=== PATIENT | male | born 1950 | race Caucasian/White ===

== ENCOUNTER 2019-05-20 07:52 | Outpatient (CLI) | payer MEDICARE, BC ==
--- NOTE | 2019-05-20 10:52 | CT ---
ABDOMEN CT WITHOUT CONTRAST PELVIC CT WITHOUT CONTRAST: HISTORY: Hematuria. Lower abdominal and groin pain. Renal calculi. COMPARISON: None. FINDINGS: Abdomen CT: Lung bases:Dependent atelectatic changes. Heart size: Normal heart size. No significant pericardial fluid. There are coronary artery consultati ons. Aorta: Normal caliber. Solid organs: Limited evaluation by the lack of IV contrast. Grossly no solid organ abnormality. Mild atrophy of the head of the pancreas. Lymph nodes: No gastrohepatic, retrocrural or periportal lymphadenopathy. Gallbladder: Cholelithiasis. No evidence of cholecystitis. Mesentery: No mass, lymphadenopathy, free air or free fluid. Right kidney: No evidence of obstructive uropathy. Left kidney: Nonobstructing calculus in the lower pole of the left kidney, measuring 0.7 cm. Mild to moderate dilatation of the left intrarenal collecting system and proximal left ureter. Obstructing 0.8 cm calculus. The remainder of the left ureter is decompressed. Alimentary canal: Limited evaluation by the lack of oral contrast. No evidence of bowel obstruction. Unremarkable ileocecal junction. Normal caliber retrocecal appendix. Diverticulosis, without evidence of diverticulitis. CT PELVIS: No mass, adenopathy, free air or free fluid. Urinary bladder: Inadequate distention. Mild mucosal prominence is nonspecific. Osseous structures: No lytic or blastic lesions. IMPRESSION: Mild to moderate left-sided obstructive uropathy secondary to a 0.8 cm proximal left ureteral calculu s. CODE T Transcribed Date/Time: 05/20/2019 11:13 AM
== END 2019-05-20 07:53 | disposition home or self-care (01) ==
LOC: SCSCT 07:52
PROVIDERS: ATTEND Family Medicine
DX: N20.2 Calculus of kidney with calculus of ureter (principal); N13.9 Obstructive and reflux uropathy, unspecified
CPT/HCPCS: 74176

== ENCOUNTER 2024-02-24 13:13 | Outpatient (CLI) | payer MEDICARE, BC ==
[2024-02-24] MEDS ORDERED: Magnevist 469MG/ML 20 ML VIAL ONE (13:45)
== END 2024-02-24 13:14 | disposition home or self-care (01) ==
LOC: MRI 13:13
PROVIDERS: ATTEND Specialist
DX: H90.41 Sensorineural hearing loss, unilateral, right ear, with unrestricted hearing on the contralateral side (principal); I67.82 Cerebral ischemia
CPT/HCPCS: 70553; 76377; A9579